=== PATIENT | male | born 1995 | race Caucasian/White ===

== ENCOUNTER 2021-11-25 03:34 | Emergency (ER) | payer OTHER, SELFPAY ==
[2021-11-25 03:46] VITALS: BP 167/77; PULSE 101; RESP 20; TEMP 36.6; O2SAT 98; BMI 40.6
[2021-11-25 03:53] LABS: Bilirubin Urine UA NEGATIVE (NEGATIVE); Glucose Urine UA NEGATIVE (Negative); Ketones Urine UA NEGATIVE (NEGATIVE); Leukocyte Esterase Urine UA TRACE (NEGATIVE); Nitrite Urine UA NEGATIVE (Negative); Occult Blood Urine UA 3+ (Negative); Protein Urine UA 1+ (Negative); Specific Gravity Urine UA 1.025 (1.000-1.035); Urobilinogen Urine UA 0.2 E.U./dL (0.2); pH Urine UA 5.5 (4.5-8.0)
[2021-11-25 03:54] LABS: Appearance Urine UA Cloudy; Color Urine UA RED
--- NOTE | 2021-11-25 03:54 | DI.CT.S_ITS ---
PROCEDURE: CT KIDNEY URETER BLADDER (KUB) INDICATIONS: flank pain, hematuria TECHNIQUE: Axial sections were acquired from the lung bases to the pubic symphysis. Coronal and sagittal reformats were performed. For radiation dose reduction, the following was used: automated exposure control, adjustment of mA and/or kV according to patient size. COMPARISON: None. FINDINGS: Image quality: Excellent. Lung bases: Lingular scarring or atelectasis. Heart: No significant findings. URINARY: There are bilateral nonobstructing renal calculi, all of which under 5 mm. There are about 4 in each kidney. Mild right hydronephrosis secondary to a 2-3 mm right distal ureter stone. Bladder: Under distended ABDOMEN: Liver: Unremarkable. Gallbladder: Unremarkable Biliary ducts: Unremarkable. Pancreas: Unremarkable. Spleen: Unremarkable. Adrenal Glands: Unremarkable. Stomach and Bowel: Small hiatal hernia. No bowel obstruction. Peritoneum: No abnormal intraperitoneal fluid. No free air. Ventral Wall: Small fat containing umbilical hernia. Abdominal Nodes: No enlarged retroperitoneal or mesenteric lymph nodes. Vessels: Aorta and inferior vena cava are normal in size. PELVIS: Pelvic Organs: Unremarkable. Pelvic Nodes: Unremarkable. Miscellaneous: No inguinal hernias are seen. Bones: No suspicious osseous lesions. IMPRESSION: 2-3 mm obstructing right distal ureter stone with mild hydronephrosis. Nonobstructing renal calyceal calculi are present, about 4 in each kidney measuring less than 5 mm. Agree with preliminary report. Dictated by: Lázaro Yoo M.D. on 11/25/2021 at 8:25 Approved by: Lázaro Yoo M.D. on 11/25/2021 at 8:31
--- NOTE | 2021-11-25 03:54 | ED.MALEGU ---
HPI - Male Genitourinary General Chief complaint: Urogenital-Male Stated complaint: Kidney stone Time Seen by Provider: 11/25/21 03:54 Source: patient Mode of arrival: Ambulatory History of Present Illness HPI Narrative: 26-year-old male nonsmoker with history of kidney stones presents with a significant other and a chief complaint of a sudden onset right-sided flank pain. He states it is very intense, sharp and stabbing and radiates around his right side and into his groin. He states it comes and goes with a mind of its own and is without any obvious provocation or palliation. He states he has been having blood in his urine as well. He has a history of kidney stones and states it feels the same. He has had nausea and vomiting. He denies any fever chills. He is otherwise well and free of complaint and denies runny nose, sore throat or cough. He is no chest pain or shortness of breath Related Data Previous Rx's Medication Instructions Recorded gabapentin 100 mg capsule 200 mg PO BEDTIME PRN myofacial 01/05/18 pain syndrome #30 caps hydrocodone 5 mg-acetaminophen 325 1 tab PO Q4-6H PRN pain #10 tabs 11/25/21 mg tablet ketorolac 10 mg tablet 10 mg PO Q6H PRN pain #14 tabs 11/25/21 ondansetron 4 mg disintegrating 4 mg PO TID-QID PRN nausea and 11/25/21 tablet vomiting #10 tabs tamsulosin 0.4 mg capsule (Flomax) 0.4 mg PO DAILY #30 caps 11/25/21 Allergies Allergy/AdvReac Type Severity Reaction Status Date / Time No Known Allergies Allergy Uncoded 08/08/17 12:51 Review of Systems Review of Systems Narrative: GENERAL: See HPI HEENT: Denies sinus pain, ear pain, sore throat, difficulty swallowing, dizziness. RESPIRATORY: Denies dyspnea, cough, wheezing, hemoptysis, sputum. CARDIOVASCULAR: Denies chest pain, palpitations, orthopnea, edema, GASTROINTESTINAL: See HPI : See HPI MUSCULOSKELETAL: denies weakness, joint pain, or bony pain SKIN: Denies rash, skin lesions, or other NEUROLOGIC: Denies weakness, headache, numbness, change in speech, confusion, seizures, incoordination. PSYCHIATRIC: No concerning psychosocial issues. 12 point review of systems is negative except for those stated above Patient History Social History Smoking Status: Former smoker Smoking Status: Former smoker alcohol intake frequency: holidays/special occasions only Substance Use Type: does not use Exam Narrative Exam Narrative: GENERAL: [26] year old patient appears stated age. Well-developed patient, in obvious pain, pacing in the room and rubbing his right flank HEAD: Atraumatic. Normocephalic. EYES: Pupils equal round and reactive. Extraocular motions intact. No scleral icterus. No injection or drainage. ENT: Nose without bleeding, purulent drainage. Throat without erythema, tonsillar hypertrophy or exudate. Airway patent. NECK: Trachea midline. Non tender CARDIOVASCULAR: Regular rate and rhythm without murmurs, gallops, or rubs. RESPIRATORY: Clear to auscultation. Breath sounds equal bilaterally. No wheezes, rales, or rhonchi. GASTROINTESTINAL: Abdomen soft, non-tender, nondistended. EXTREMITIES: No edema or joint tenderness. BACK: Nontender without deformity or crepitance. No flank tenderness. NEURO: AOx3. SKIN: No rash or erythema of visible areas Initial Vital Signs Initial Vital Signs: Vital Signs Temperature 97.8 F 11/25/21 03:46 Pulse Rate 101 H 11/25/21 03:46 Respiratory Rate 20 11/25/21 03:46 Blood Pressure 167/77 H 11/25/21 03:46 Pulse Oximetry 98 11/25/21 03:46 Oxygen Delivery Method 11/25/21 03:46 Course Orders Ordered: ED Orders 11/25/21 03:47 Urinalysis and Microscopic Stat Urine Culture Stat 11/25/21 03:54 CT kidney ureter bladder (KUB) Stat 11/25/21 04:25 Basic Metabolic Panel Stat Complete Blood Count AUTO DIFF Stat Discontinued Medications Hydrocodone Bitart/Acetaminophen (Hydrocodone/Acet 5/325 Prepack) 1 bottle MISC SEEINSTR ONE Stop: 11/25/21 04:36 Hydromorphone HCl (Hydromorphone 0.5 Mg Inj) 0.5 mg IV NOW ONE Stop: 11/25/21 05:32 Last Admin: 11/25/21 05:44 Dose: 0.5 mg Documented By: EB Sodium Chloride (Normal Saline 0.9%) 1,000 mls @ 1,000 mls/hr IV BOLUS ONE Stop: 11/25/21 04:53 Last Infusion: 11/25/21 06:09 Dose: 0 mls/hr Documented By: Admin: 11/25/21 04:22 Dose: 1,000 mls/hr Documented By: IRINA Lidocaine HCl 10.2 ml/ Sodium (Chloride) 60.2 mls @ 361.2 mls/hr IV NOW ONE Stop: 11/25/21 04:46 Last Infusion: 11/25/21 05:56 Dose: 0 mls/hr Documented By: Admin: 11/25/21 04:51 Dose: 361.2 mls/hr Documented By: IRINA Ketorolac Tromethamine (Ketorolac 30 Mg/Ml Vial) 15 mg IV NOW ONE Stop: 11/25/21 03:55 Last Admin: 11/25/21 04:22 Dose: 15 mg Documented By: IRINA Ondansetron HCl (Ondansetron 4 Mg/2 Ml Inj) 4 mg IV NOW ONE Stop: 11/25/21 03:55 Last Admin: 11/25/21 04:22 Dose: 4 mg Documented By: IRINA Tamsulosin HCl (Tamsulosin 0.4 Mg Capsule) 0.4 mg PO NOW ONE Stop: 11/25/21 04:36 Last Admin: 11/25/21 05:44 Dose: 0.4 mg Documented By: IRINA Reevaluation(s) Reevaluation #1: Patient has significant improvement symptoms after above-stated therapies. Vital Signs Vital signs: Vital Signs - 8 hr 11/25/21 03:46 Temperature 97.8 F Pulse Rate 101 H Respiratory Rate 20 Blood Pressure 167/77 H Pulse Oximetry 98 Oxygen Delivery Method Room Air MDM - Male Genitourinary Lab Data Result diagrams: 11/25/21 04:25 11/25/21 04:25 Labs: Lab Results 11/25/21 11/25/21 11/25/21 Range/Units 03:47 04:25 04:25 WBC 13.8 H (4.5-11.0) X10^3/uL RBC 5.05 (4.5-5.9) X10^6/uL Hgb 14.4 (13.5-17.5) g/dL Hct 42.0 (41-53) % MCV 83.2 (80-100) fL MCH 28.6 (26-34) PG MCHC 34.4 (30-36) % RDW 12.9 (11.6-14.8) % Plt Count 303 (150-400) X10^3/uL Neut % (Auto) 62.4 (50-75) % Lymph % (Auto) 26.9 (25-40) % [place] % (Auto) 7.9 (3-14) % Eos % (Auto) 2.1 (2-4) % Baso % (Auto) 0.7 (0-2) % Neut # (Auto) 8600 H (0245-6806) /uL Lymph # (Auto) 3700 (7744-7352) /uL [place] # (Auto) 1100 H (0-900) /uL Eos # (Auto) 300 (0-450) /uL Baso # (Auto) 100 (0-100) /uL Sodium 141 (137-145) mmol/L Potassium 3.7 (3.4-5.1) mmol/L Chloride 105 (98-107) mmol/L Carbon Dioxide 24 (22-32) mmol/L BUN 15 (9-20) mg/dL Creatinine 0.95 (0.66-1.25) mg/dL Estimated GFR > 60 (>60) mL/min BUN/Creatinine Ratio 15.8 (6-22) Glucose 117 H (70-100) mg/dL Calcium 8.7 (8.4-10.2) mg/dL Urine Color Red Urine Appearance Cloudy Urine pH 5.5 (4.5-8.0) Ur Specific [place] 1.025 (1.000-1.035) Urine Protein 1+ H (Negative) Urine Glucose (UA) Negative (Negative) g/dL Urine Ketones Negative (NEGATIVE) Urine Occult Blood 3+ H (Negative) Urine Nitrate Negative (Negative) Urine Bilirubin Negative (NEGATIVE) Urine Urobilinogen 0.2 (0.2) E.U./dL Ur Leukocyte Esterase Trace H (NEGATIVE) Urine RBC >100/hpf H (0-5/HPF) Urine WBC 0-1/hpf (0-5/HPF) Urine Bacteria None seen (None) Ur Culture Indicated? Specimen cultured Imaging Data CT scan - abdomen/pelvis: My Impression: 3 mm obstructing stone in the right mid to distal ureter with associated [id number] hydro MDM Narrative Medical decision making narrative: Patient with classic history for kidney stone, urine shows blood but no sign of infection, no evidence of renal involvement on lab work and a 3 mm stone noted on imaging. His symptoms are greatly improved after above-stated therapies. His pain is well controlled, he is tolerating liquids and shows no sign of sepsis. Return precautions given and questions answered to his apparent satisfaction Discharge Plan Departure Patient Disposition: Home Clinical Impression: Kidney stone on right side Instructions: DI for Kidney Stones Activity Restrictions/Additional Instructions: *You have been diagnosed with [right-sided kidney stone measuring 3 mm with evidence of mild obstruction of the urinary tract causing swelling of your kidney. There is no evidence of infection or kidney failure.] *What to do: *Please continue to take your regular medications as directed. [x ] New medication prescriptions sent to your pharmacy: [[facility] ] [ ] New medication written as a paper prescription [ ] No new medications given *Please follow up with your primary care provider in 2-3 days, call for an appointment. Let them know you were seen in the Emergency Department and that we ask that you be seen in follow up. We will electronically transmit a record of today's note if your PCP is in our system *If you do not have a primary care provider please contact the [facility] Resource line at [phone]. They will ask some questions about your medical history and help get you set up with a doctor in the community. * as we discussed, it would be reasonable (though not required) to follow-up with local urology. Please contact Dr. Bell at his office number listed below and let them know that you were seen in the emergency department and we would like you seen in follow-up *Return to Emergency Department if you should have any new, worsening or concerning symptoms, such as [fever greater than 101 F, shaking chills, worsening pain, persistent vomiting or other bothersome symptoms] You have been prescribed a short course of narcotic medications. These are potentially dangerous and addictive medications that should be used carefully. While on these medications you cannot drive or operate heavy machinery. Additionally, you cannot sign legal documents or perform any duties such as this. 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 Please understand that we cannot provide further refills of narcotics or controlled substances through the ED and your pain management will need to be through your Primary Care Provider Prescriptions: New hydrocodone-acetaminophen 5-325 mg tablet 1 tab PO Q4-6H PRN (Reason: pain) Qty: 10 0RF ketorolac 10 mg tablet 10 mg PO Q6H PRN (Reason: pain) Qty: 14 0RF tamsulosin [Flomax] 0.4 mg capsule 0.4 mg PO DAILY Qty: 30 0RF ondansetron 4 mg tablet,disintegrating 4 mg PO TID-QID PRN (Reason: nausea and vomiting) Qty: 10 0RF No Action gabapentin 100 mg capsule 200 mg PO BEDTIME PRN (Reason: myofacial pain syndrome) Qty: 30 0RF Referrals: Miscellaneous,DoctorMD [Primary Care Provider] - Vinod Bell MD [Physician] -
[2021-11-25 04:01] LABS: Bacteria Urine None Seen; Culture Indicated Urine Specimen Cultured; RBC Urine >100/HPF (0-5/HPF); WBC Urine 0-1/HPF (0-5/HPF)
[2021-11-25] MEDS: KETOROLAC 30 MG/ML VIAL 15 MG IV (04:22)
[2021-11-25] MEDS: ONDANSETRON 4 MG/2 ML INJ IV (04:22)
[2021-11-25] MEDS: SODIUM CHLORIDE 0.9% 1,000 ML 1000 ML IV (04:22)
[2021-11-25 04:37] LABS: Add Manual Diff / Slide Review NO; Basophils Absolute Auto 100 /uL (0-100); Basophils Percent Auto 0.7 % (0-2); Eosinophils Absolute Auto 300 /uL (0-450); Eosinophils Percent Auto 2.1 % (2-4); Hemoglobin 14.4 g/dL (13.5-17.5); Lymphocytes Absolute Auto 3700 /uL (1100-4500); Lymphocytes Percent Auto 26.9 % (25-40); Mean Corpuscular HGB Conc 34.4 % (30-36); Mean Corpuscular Hemoglobin 28.6 PG (26-34); Mean Corpuscular Volume 83.2 fL (80-100); Monocytes Absolute Auto 1100 /uL (0-900); Monocytes Percent Auto 7.9 % (3-14); Neutrophils Absolute Auto 8600 /uL (1500-7000); Neutrophils Percent Auto 62.4 % (50-75); Platelet Count 303 X10^3/uL (150-400); Red Blood Cell Count 5.05 X10^6/uL (4.5-5.9); Red Cell Distribution Width 12.9 % (11.6-14.8); White Blood Cell Count 13.8 X10^3/uL (4.5-11.0)
[2021-11-25 04:42] LABS: BUN Creatinine Ratio 15.8 (6-22); Blood Urea Nitrogen 15 mg/dL (9-20); Calcium 8.7 mg/dL (8.4-10.2); Carbon Dioxide 24 mmol/L (22-32); Chloride 105 mmol/L (98-107); Estimated Glomerular Filt Rate > 60 mL/min (>60); Glucose 117 mg/dL (70-100); HEMOLYSIS < 15 (0-50); Potassium 3.7 mmol/L (3.4-5.1); Sodium 141 mmol/L (137-145)
[2021-11-25] MEDS: LIDOCAINE 2% IV (04:51)
[2021-11-25] MEDS: SODIUM CHLORIDE 0.9% IV (04:51)
[2021-11-25] MEDS: TAMSULOSIN 0.4 MG CAPSULE PO (05:44)
[2021-11-25] MEDS: HYDROMORPHONE 0.5 MG INJ IV (05:44)
[2021-11-25] MEDS: HYDROCODONE/ACET 5/325 PREPACK 1 BOTTLE MISC (06:19)
== END 2021-11-25 06:21 | disposition home or self-care (01) ==
PROVIDERS: Emergency Provider Emergency Medicine
DX: N20.0 Calculus of kidney (principal)
CPT/HCPCS: 74176; 80048; 81001; 85025; 87086; 96365; 96375; 99283; 99284; J1170; J1885; J2405

== ENCOUNTER 2021-11-29 01:17 | Emergency (ER) | payer OTHER, SELFPAY ==
--- NOTE | 2021-11-29 03:03 | ED_ITS ---
HPI - Male Genitourinary General Chief complaint: Urogenital-Male Stated complaint: PASSED A KIDNEY STONE Time Seen by Provider: 11/29/21 02:40 History of Present Illness HPI Narrative: 26-year-old male with known kidney stones and recent diagnosis of a 3 mm right- sided stone returns for evaluation of ongoing pain. He had been seen and evaluated by myself a few days ago had classic history and physical with the CT demonstrating a right mid ureteral stone with associated hydro. He had a slight elevation in white blood cell count but no evidence of infection on urine. Pain has been well controlled and he was discharged in typical fashion. He states that earlier today he passed what appeared to be a small stone but has ongoing pain nonetheless. He does, however state the pain is much less intense as it was when he was here few days ago Related Data Previous Rx's Medication Instructions Recorded gabapentin 100 mg capsule 200 mg PO BEDTIME PRN myofacial 01/05/18 pain syndrome #30 caps hydrocodone 5 mg-acetaminophen 325 1 tab PO Q4-6H PRN pain #10 tabs 11/25/21 mg tablet ketorolac 10 mg tablet 10 mg PO Q6H PRN pain #14 tabs 11/25/21 ondansetron 4 mg disintegrating 4 mg PO TID-QID PRN nausea and 11/25/21 tablet vomiting #10 tabs tamsulosin 0.4 mg capsule (Flomax) 0.4 mg PO DAILY #30 caps 11/25/21 hydrocodone 5 mg-acetaminophen 325 1 tab PO Q4-6H PRN pain #10 tabs 11/29/21 mg tablet ketorolac 10 mg tablet 10 mg PO Q6H PRN pain #14 tabs 11/29/21 ondansetron 4 mg disintegrating 4 mg PO TID-QID PRN nausea and 11/29/21 tablet vomiting #10 tabs Allergies Allergy/AdvReac Type Severity Reaction Status Date / Time No Known Allergies Allergy Uncoded 08/08/17 12:51 Review of Systems Review of Systems Narrative: GENERAL: Denies chills, fatigue, malaise, fever, sweats. HEENT: Denies sinus pain, ear pain, sore throat, difficulty swallowing, dizzi ness. RESPIRATORY: Denies dyspnea, cough, wheezing, hemoptysis, sputum. CARDIOVASCULAR: Denies chest pain, palpitations, orthopnea, edema, GASTROINTESTINAL: Denies nausea, vomiting, abdominal pain, diarrhea, constipation, melena. : See HPI MUSCULOSKELETAL: denies weakness, joint pain, or bony pain SKIN: Denies rash, skin lesions, or other NEUROLOGIC: Denies weakness, headache, numbness, change in speech, confusion, seizures, incoordination. PSYCHIATRIC: No concerning psychosocial issues. 12 point review of systems is negative except for those stated above Patient History Social History Smoking Status: Former smoker Smoking Status: Former smoker alcohol intake frequency: holidays/special occasions only Substance Use Type: does not use Exam Narrative Exam Narrative: GENERAL: [26] year old patient appears stated age. Well-developed patient, in mild distress. HEAD: Atraumatic. Normocephalic. EYES: Pupils equal round and reactive. Extraocular motions intact. No scleral icterus. No injection or drainage. ENT: Nose without bleeding, purulent drainage. Throat without erythema, tonsillar hypertrophy or exudate. Airway patent. NECK: Trachea midline. Non tender CARDIOVASCULAR: Regular rate and rhythm without murmurs, gallops, or rubs. RESPIRATORY: Clear to auscultation. Breath sounds equal bilaterally. No wheezes, rales, or rhonchi. GASTROINTESTINAL: Abdomen soft, non-tender, nondistended. EXTREMITIES: No edema or joint tenderness. BACK: Nontender without deformity or crepitance. No flank tenderness. NEURO: AOx3. SKIN: No rash or erythema of visible areas Initial Vital Signs Initial Vital Signs: Vital Signs Temperature 97.7 F 11/29/21 03:04 Pulse Rate 85 11/29/21 03:04 Respiratory Rate 18 11/29/21 03:04 Blood Pressure 159/99 H 11/29/21 03:04 Pulse Oximetry 97 11/29/21 03:04 Oxygen Delivery Method 11/29/21 03:04 Course Orders Ordered: ED Orders 11/29/21 04:45 BMP [Basic Metabolic Panel] Stat CBC Auto Diff [Complete Blood Count AUTO DIFF] Stat 11/29/21 05:07 US renal complete Stat 11/29/21 05:14 Urine Microscopic Stat Discontinued Medications Hydromorphone HCl (Hydromorphone 0.5 Mg Inj) 0.5 mg IV NOW ONE Stop: 11/29/21 05:12 Last Admin: 11/29/21 05:17 Dose: 0.5 mg Documented By: DAVSI Sodium Chloride (Normal Saline 0.9%) 1,000 mls @ 1,000 mls/hr IV BOLUS ONE Stop: 11/29/21 05:25 Last Admin: 11/29/21 04:51 Dose: 1,000 mls/hr Documented By: DAVIS Ketorolac Tromethamine (Ketorolac 30 Mg/Ml Vial) 15 mg IV NOW ONE Stop: 11/29/21 04:27 Last Admin: 11/29/21 04:51 Dose: 15 mg Documented By: DAVIS Reevaluation(s) Reevaluation #1: Minimal improvement after Toradol Reevaluation #2: Some more improvement after Dilaudid, requesting more Vital Signs Vital signs: Vital Signs - 8 hr 11/29/21 03:04 Temperature 97.7 F Pulse Rate 85 Respiratory Rate 18 Blood Pressure 159/99 H Pulse Oximetry 97 Oxygen Delivery Method Room Air MDM - Male Genitourinary Lab Data Result diagrams: 11/29/21 04:45 11/29/21 04:45 Labs: Lab Results 11/29/21 11/29/21 Range/Units 04:45 04:45 WBC 12.5 H (4.5-11.0) X10^3/uL RBC 4.78 (4.5-5.9) X10^6/uL Hgb 13.7 (13.5-17.5) g/dL Hct 39.9 L (41-53) % MCV 83.5 (80-100) fL MCH 28.7 (26-34) PG MCHC 34.4 (30-36) % RDW 12.9 (11.6-14.8) % Plt Count 313 (150-400) X10^3/uL Neut % (Auto) 69.1 (50-75) % Lymph % (Auto) 21.5 L (25-40) % [place] % (Auto) 7.1 (3-14) % Eos % (Auto) 1.7 L (2-4) % Baso % (Auto) 0.6 (0-2) % Neut # (Auto) 8700 H (7149-1753) /uL Lymph # (Auto) 2700 (0388-6551) /uL [place] # (Auto) 900 (0-900) /uL Eos # (Auto) 200 (0-450) /uL Baso # (Auto) 100 (0-100) /uL Sodium 140 (137-145) mmol/L Potassium 4.1 (3.4-5.1) mmol/L Chloride 106 (98-107) mmol/L Carbon Dioxide 22 (22-32) mmol/L BUN 23 H (9-20) mg/dL Creatinine 1.10 (0.66-1.25) mg/dL Estimated GFR > 60 (>60) mL/min BUN/Creatinine Ratio 20.9 (6-22) Glucose 107 H (70-100) mg/dL Calcium 8.9 (8.4-10.2) mg/dL Urine Dip Bedside Urine Glucose Negative Bedside Urine Bilirubin - Negative Bedside Urine Ketone - Negative Urine Specific [place] 1.025 Bedside Urine Occult Blood +++ Bedside Urine pH 5.5 Bedside Urine Protein - Negative Bedside Urine Urobilinogen - Negative Bedside Urine Nitrite - Negative Bedside Urine Leukocytes +/- 15 Esterase Discharge Plan Departure Patient Disposition: Home Clinical Impression: Kidney stone on right side Instructions: DI for Kidney Stones Activity Restrictions/Additional Instructions: *You have been diagnosed with [right-sided kidney stone] *What to do: *Please continue to take your regular medications as directed. [x ] New medication prescriptions sent to your pharmacy: [[facility] ] [ ] New medication written as a paper prescription [ ] No new medications given *Please follow up with your primary care provider in 2-3 days, call for an appointment. Let them know you were seen in the Emergency Department and that we ask that you be seen in follow up. We will electronically transmit a record of today's note if your PCP is in our system *If you do not have a primary care provider please contact the [facility] Resource line at [phone]. They will ask some questions about your medical history and help get you set up with a doctor in the community. *Return to Emergency Department if you should have any new, worsening or concerning symptoms, such as [fever greater than 101 F, shaking chills, worsening pain, persistent vomiting or other bothersome symptoms] Prescriptions: New hydrocodone-acetaminophen 5-325 mg tablet 1 tab PO Q4-6H PRN (Reason: pain) Qty: 10 0RF ketorolac 10 mg tablet 10 mg PO Q6H PRN (Reason: pain) Qty: 14 0RF ondansetron 4 mg tablet,disintegrating 4 mg PO TID-QID PRN (Reason: nausea and vomiting) Qty: 10 0RF No Action gabapentin 100 mg capsule 200 mg PO BEDTIME PRN (Reason: myofacial pain syndrome) Qty: 30 0RF hydrocodone-acetaminophen 5-325 mg tablet 1 tab PO Q4-6H PRN (Reason: pain) Qty: 10 0RF ketorolac 10 mg tablet 10 mg PO Q6H PRN (Reason: pain) Qty: 14 0RF tamsulosin [Flomax] 0.4 mg capsule 0.4 mg PO DAILY Qty: 30 0RF ondansetron 4 mg tablet,disintegrating 4 mg PO TID-QID PRN (Reason: nausea and vomiting) Qty: 10 0RF Referrals: Giovany Pop MD [Primary Care Provider] -
[2021-11-29 03:04] VITALS: BP 159/99; PULSE 85; RESP 18; TEMP 36.5; O2SAT 97
[2021-11-29] MEDS: KETOROLAC 30 MG/ML VIAL 15 MG IV (04:51)
[2021-11-29] MEDS: SODIUM CHLORIDE 0.9% 1,000 ML 1000 ML IV (04:51)
--- NOTE | 2021-11-29 05:07 | DI.US.S_ITS ---
PROCEDURE: US RENAL COMPLETE INDICATIONS: worsening flank pain, recent stone TECHNIQUE: Real-time scanning was performed of the kidneys and bladder, with image documentation. COMPARISON: [facility], CT, CT KIDNEY URETER BLADDER (KUB), 11/25/2021, 4:02. [facility], CT, CT ABDOMEN PELVIS WITH CONTRAST, 03/28/2019, 20:26. [facility], ABDOMEN ACUTE SERIES, 06/23/2017, 7:54. FINDINGS: Kidneys: Kidneys are normal in size. Right kidney measures 12.0 cm long; left kidney measures 11.9 cm long. Right renal cortical thickness is 2.0 cm; left renal cortical thickness is 2.0 cm. Renal cortical echotexture is normal. No hydronephrosis. 1.1 centimeter nonobstructing stone noted in the upper pole of the left kidney. No suspicious solid mass lesions. Bladder: Urinary bladder completely decompressed at the time of imaging and cannot be evaluated. Miscellaneous: No free pelvic fluid. IMPRESSION: 1. No hydronephrosis. 2. 1 centimeter nonobstructing left renal stone. Dictated by: Jennifer Bernabe MD, PhD on 11/29/2021 at 8:57 Approved by: Jennifer Bernabe MD, PhD on 11/29/2021 at 8:59
[2021-11-29] MEDS: HYDROMORPHONE 0.5 MG INJ IV (05:17)
[2021-11-29 05:19] LABS: Add Manual Diff / Slide Review NO; Basophils Absolute Auto 100 /uL (0-100); Basophils Percent Auto 0.6 % (0-2); Eosinophils Absolute Auto 200 /uL (0-450); Eosinophils Percent Auto 1.7 % (2-4); Hematocrit 39.9 % (41-53); Hemoglobin 13.7 g/dL (13.5-17.5); Lymphocytes Absolute Auto 2700 /uL (1100-4500); Lymphocytes Percent Auto 21.5 % (25-40); Mean Corpuscular HGB Conc 34.4 % (30-36); Mean Corpuscular Hemoglobin 28.7 PG (26-34); Mean Corpuscular Volume 83.5 fL (80-100); Monocytes Absolute Auto 900 /uL (0-900); Monocytes Percent Auto 7.1 % (3-14); Neutrophils Absolute Auto 8700 /uL (1500-7000); Neutrophils Percent Auto 69.1 % (50-75); Platelet Count 313 X10^3/uL (150-400); Red Blood Cell Count 4.78 X10^6/uL (4.5-5.9); Red Cell Distribution Width 12.9 % (11.6-14.8); White Blood Cell Count 12.5 X10^3/uL (4.5-11.0)
[2021-11-29 05:24] LABS: BUN Creatinine Ratio 20.9 (6-22); Blood Urea Nitrogen 23 mg/dL (9-20); Calcium 8.9 mg/dL (8.4-10.2); Carbon Dioxide 22 mmol/L (22-32); Chloride 106 mmol/L (98-107); Estimated Glomerular Filt Rate > 60 mL/min (>60); Glucose 107 mg/dL (70-100); HEMOLYSIS < 15 (0-50); Potassium 4.1 mmol/L (3.4-5.1); Sodium 140 mmol/L (137-145)
[2021-11-29 06:35] LABS: Bacteria Urine Few (2-10); RBC Urine 10-30/HPF (0-5/HPF); WBC Urine 1-5/HPF (0-5/HPF)
[2021-11-29 06:36] LABS: Culture Indicated Urine Specimen Cultured
[2021-11-29] MEDS: HYDROCODONE/ACET 5/325 PREPACK 1 BOTTLE MISC (06:52)
== END 2021-11-29 07:03 | disposition home or self-care (01) ==
PROVIDERS: Emergency Provider Emergency Medicine; PCP Urology
DX: N20.0 Calculus of kidney (principal)
CPT/HCPCS: 76770; 80048; 81003; 81015; 85025; 87086; 96361; 96374; 96375; 99283; 99284; J1170; J1885

== ENCOUNTER → 2022-06-21 07:47 | Outpatient (CLI) | payer OTHER, SELFPAY ==
[2022-06-21 08:37] LABS: COVID-19 CEPHEID 4-PLEX PCR Negative (Negative); Influenza A - CEPHEID Flu A NEGATIVE (NEGATIVE); Influenza B - CEPHEID Flu B NEGATIVE (NEGATIVE); Respiratory Syncytial Virus Negative (Negative)
== END ==
PROVIDERS: PCP Urology; Visit Provider Registered Nurse
DX: R50.9 Fever, unspecified (principal)
CPT/HCPCS: 0241U

== ENCOUNTER 2023-07-01 21:28 | Emergency (ER) | payer OTHER, SELFPAY ==
[2023-07-01 21:30] VITALS: PULSE 78; RESP 26; TEMP 36.4; O2SAT 95; BMI 36.6
[2023-07-01] MEDS: KETOROLAC 30 MG/ML VIAL IV (21:45)
[2023-07-01] MEDS: ACETAMINOPHEN IV 1,000 MG/100 ML VIAL 400 MG IV (21:45)
--- NOTE | 2023-07-01 21:48 | ED.BACK ---
HPI - Back Pain/Injury General Chief Complaint: Back Pain/Injury Stated Complaint: states kidney pain Time Seen by Provider: 07/01/23 21:35 Source: patient Mode of arrival: Ambulatory History of Present Illness HPI Narrative: 28-year-old male who is here for evaluation approximately 1 hour of a sudden onset of left-sided flank discomfort. He states he has had multiple kidney stones in the past and this feels very similar to his prior stones. No fevers. No skin rashes. Has not tried anything for symptoms prior to arrival. It was sudden onset. Has been persistent since then. He is having some nausea. Related Data Previous Rx's Medication Instructions Recorded hydrocodone 5 mg-acetaminophen 325 1 tab PO Q6H PRN pain #20 tabs 07/01/23 mg tablet ondansetron 4 mg disintegrating 4 mg PO Q6H PRN nausea and 07/01/23 tablet vomiting #20 tabs Allergies Allergy/AdvReac Type Severity Reaction Status Date / Time No Known Allergies Allergy Uncoded 07/06/22 11:47 Review of Systems Respiratory Respiratory: Reports system reviewed and no additional complaints, except as documented Gastrointestinal Gastrointestinal: Reports system reviewed and no additional complaints, except as documented Genitourinary Genitourinary: Reports system reviewed and no additional complaints, except as documented Integumentary/Breasts Skin/Breast: Reports system reviewed and no additional complaints, except as documented Neurologic Neurologic: Reports system reviewed and no additional complaints, except as documented Patient History Social History Smoking Status: Current every day smoker Smoking Status: Current every day smoker tobacco type: cigarettes and vaping alcohol intake frequency: holidays/special occasions only Substance Use Type: does not use Exam Initial Vital Signs Initial Vital Signs: Vital Signs Temperature 97.6 F 07/01/23 21:30 Pulse Rate 78 07/01/23 21:30 Respiratory Rate 26 H 07/01/23 21:30 Pulse Oximetry 95 07/01/23 21:30 Oxygen Delivery Method Room Air 07/01/23 21:30 Const General: cooperative, comfortable and No ill appearing HENMT Head: normal to inspection Resp Effort & Inspection: normal respiratory effort Cardio Rate: regular rate GI Inspection: normal to inspection and non-distended Back/Spine/Pelvis Back: No CVA tenderness Skin General: no rashes or lesions noted Course Orders Ordered: ED Orders 07/01/23 21:40 Basic Metabolic Panel Stat Complete Blood Count AUTO DIFF Stat 07/01/23 21:47 Urine Microscopic Stat Discontinued Medications Hydrocodone Bitart/Acetaminophen (Hydrocodone/Acet 5/325 Prepack) 1 bottle MISC DIRECTED ONE Stop: 07/01/23 23:03 Last Admin: 07/01/23 23:13 Dose: 1 bottle Documented By: MARCELA Hydromorphone HCl (Hydromorphone 1 Mg Inj) 1 mg IV NOW ONE Stop: 07/01/23 22:06 Last Admin: 07/01/23 22:13 Dose: 1 mg Documented By: Hydromorphone HCl (Hydromorphone 1 Mg Inj) 1 mg IV NOW ONE Stop: 07/01/23 22:59 Last Admin: 07/01/23 23:05 Dose: 1 mg Documented By: MARCELA Acetaminophen (Ofirmev) 1,000 mg in 100 mls @ 400 mls/hr IV NOW ONE Stop: 07/01/23 21:50 Last Infusion: 07/01/23 22:06 Dose: Infused Documented By: Admin: 07/01/23 21:45 Dose: 400 mls/hr Documented By: MARCELA Ketorolac Tromethamine (Ketorolac 30 Mg/Ml Vial) 30 mg IV NOW ONE Stop: 07/01/23 21:37 Last Admin: 07/01/23 21:45 Dose: 30 mg Documented By: MARCELA Ondansetron HCl (Ondansetron 4 Mg/2 Ml Inj) 4 mg IV NOW ONE Stop: 07/01/23 22:07 Last Admin: 07/01/23 22:13 Dose: Not Given Documented By: Ondansetron HCl (Ondansetron 4 Mg Odt Prepack) 1 bottle MISC DIRECTED ONE Stop: 07/01/23 23:03 Last Admin: 07/01/23 23:14 Dose: 1 bottle Documented By: MARCELA Vital Signs Vital signs: Vital Signs - 8 hr 07/01/23 21:30 07/01/23 23:41 Temperature 97.6 F Pulse Rate 78 83 Respiratory Rate 26 H 18 Blood Pressure 133/87 Pulse Oximetry 95 98 Oxygen Delivery Method Room Air Room Air MDM - Back Pain/Injury Lab Data Attestation: I reviewed the patient's lab results. 07/01/23 21:40 07/01/23 21:40 Labs: Lab Results 07/01/23 07/01/23 Range/Units 21:40 21:47 WBC 9.8 (4.5-11.0) X10^3/uL RBC 5.56 (4.5-5.9) X10^6/uL Hgb 15.9 (13.5-17.5) g/dL Hct 46.3 (41-53) % MCV 83.3 (80-100) fL MCH 28.5 (26-34) PG MCHC 34.3 (30-36) % RDW 13.3 (11.6-14.8) % Plt Count 387 (150-400) X10^3/uL Neut % (Auto) 57.8 (50-75) % Lymph % (Auto) 32.5 (25-40) % [place] % (Auto) 8.0 (3-14) % Eos % (Auto) 1.2 L (2-4) % Baso % (Auto) 0.5 (0-2) % Neut # (Auto) 5600 (1733-6228) /uL Lymph # (Auto) 3200 (3604-4773) /uL [place] # (Auto) 800 (0-900) /uL Eos # (Auto) 100 (0-450) /uL Baso # (Auto) 100 (0-100) /uL Sodium 142 (137-145) mmol/L Potassium 4.3 (3.4-5.1) mmol/L Chloride 111 H (98-107) mmol/L Carbon Dioxide 23 (22-32) mmol/L BUN 15 (9-20) mg/dL Creatinine 0.80 (0.66-1.25) mg/dL Estimated GFR > 60 (>60) mL/min BUN/Creatinine Ratio 18.8 (6-22) Glucose 120 H (70-100) mg/dL Calcium 9.7 (8.4-10.2) mg/dL Urine RBC 10-30/hpf H (0-5/HPF) Urine WBC 0-1/hpf (0-5/HPF) Ur Squamous Epith Cells 0-1 /hpf (0-5/HPF) Calcium Oxalate Crystal Moderate H Urine Bacteria Occasional (0-1) (None) Urine Mucus 1+ H (Negative) Ur Culture Indicated? Cult not indicated Vol Urine Centrifuged Low vol <10ml unspun A Urine Dip Bedside Urine Glucose Negative Bedside Urine Bilirubin - Negative Bedside Urine Ketone - Negative Urine Specific [place] 1.03 Bedside Urine Occult Blood +++ Bedside Urine pH 6 Bedside Urine Protein +/- 15 Bedside Urine Urobilinogen - Negative Bedside Urine Nitrite - Negative Bedside Urine Leukocytes - Negative Esterase MDM Narrative Medical decision making narrative: Patient has a history of stones. He states this feels very similar. Creatinine is unremarkable. Urinalysis has blood but no other signs of infection. No skin changes. Given his history we will hold on a CT scan for now. Pain relatively well controlled with the medications here in the ER. Patient understands the risks and benefits of obtaining a CT scan in his okay with holding on this for now. Will send home with symptom control. He was given return precautions. He expressed understanding and agreement Discharge Plan Departure Patient Disposition: Home Clinical Impression: Renal colic on left side Instructions: Kidney Stones -- Adult Activity Restrictions/Additional Instructions: Use the pain and nausea medication as directed. Be sure that you were increasing your fluid intake. If you start to have symptoms that are not control the medications or vomiting that has not controlled or fevers please return to the emergency department for further evaluation. Prescriptions: New ondansetron 4 mg tablet,disintegrating 4 mg PO Q6H PRN (Reason: nausea and vomiting) Qty: 20 0RF hydrocodone-acetaminophen 5-325 mg tablet 1 tab PO Q6H PRN (Reason: pain) Qty: 20 0RF Referrals: Giovany Pop MD [Primary Care Provider] - Stand Alone Forms: Patient Portal/API, Work Release Note
[2023-07-01 21:53] LABS: Add Manual Diff / Slide Review NO; Basophils Absolute Auto 100 /uL (0-100); Basophils Percent Auto 0.5 % (0-2); Eosinophils Absolute Auto 100 /uL (0-450); Eosinophils Percent Auto 1.2 % (2-4); Hematocrit 46.3 % (41-53); Hemoglobin 15.9 g/dL (13.5-17.5); Lymphocytes Absolute Auto 3200 /uL (1100-4500); Lymphocytes Percent Auto 32.5 % (25-40); Mean Corpuscular HGB Conc 34.3 % (30-36); Mean Corpuscular Hemoglobin 28.5 PG (26-34); Mean Corpuscular Volume 83.3 fL (80-100); Monocytes Absolute Auto 800 /uL (0-900); Neutrophils Absolute Auto 5600 /uL (1500-7000); Neutrophils Percent Auto 57.8 % (50-75); Platelet Count 387 X10^3/uL (150-400); Red Blood Cell Count 5.56 X10^6/uL (4.5-5.9); Red Cell Distribution Width 13.3 % (11.6-14.8); White Blood Cell Count 9.8 X10^3/uL (4.5-11.0)
--- NOTE | 2023-07-01 21:56 | PC.NURSE ---
Pt states that pain started 20 minutes prior to arrival to ER. Pain is so bad that is it causing dry heaves, no vomiting as of now. Denies issues with urination, normal BMs
[2023-07-01 22:04] LABS: BUN Creatinine Ratio 18.8 (6-22); Blood Urea Nitrogen 15 mg/dL (9-20); Calcium 9.7 mg/dL (8.4-10.2); Carbon Dioxide 23 mmol/L (22-32); Chloride 111 mmol/L (98-107); Estimated Glomerular Filt Rate > 60 mL/min (>60); Glucose 120 mg/dL (70-100); HEMOLYSIS 15 (0-50); Potassium 4.3 mmol/L (3.4-5.1); Sodium 142 mmol/L (137-145)
[2023-07-01 22:06] LABS: Bacteria Urine Occasional (0-1); Calcium Oxalate Crystals Urine Moderate; Mucus Urine 1+ (Negative); RBC Urine 10-30/HPF (0-5/HPF); Squamous Epithelial Cell Urine 0-1 /HPF (0-5/HPF); Urine Volume Low Vol <10mL unspun; WBC Urine 0-1/HPF (0-5/HPF)
[2023-07-01 22:07] LABS: Culture Indicated Urine Cult Not Indicated
[2023-07-01] MEDS: ONDANSETRON 4 MG/2 ML INJ (22:12)
[2023-07-01] MEDS: HYDROMORPHONE 1 MG INJ IV ×2 (22:13→23:05)
[2023-07-01] MEDS: HYDROCODONE/ACET 5/325 PREPACK 1 BOTTLE MISC (23:13)
[2023-07-01] MEDS: ONDANSETRON 4 MG ODT PREPACK 1 BOTTLE MISC (23:14)
[2023-07-01 23:41] VITALS: BP 133/87; PULSE 83; RESP 18; O2SAT 98
== END 2023-07-01 23:44 | disposition home or self-care (01) ==
PROVIDERS: Emergency Provider Emergency Medicine; PCP Urology
DX: N20.0 Calculus of kidney (principal)
CPT/HCPCS: 36415; 80048; 81003; 81015; 85025; 96365; 96375; 96376; 99284; J0136; J1170; J1885; J2405

== ENCOUNTER 2023-12-04 21:47 | Emergency (ER) | payer OTHER, SELFPAY ==
[2023-12-04 22:02] VITALS: BP 189/90; PULSE 113; RESP 20; TEMP 36.6; O2SAT 100; BMI 28.6
--- NOTE | 2023-12-04 22:11 | ED.MALEGU ---
HPI - Male Genitourinary General Chief complaint: Urogenital-Male Stated complaint: states passing a kidney stone Time Seen by Provider: 12/04/23 21:52 Source: patient Mode of arrival: Ambulatory History of Present Illness HPI Narrative: 28-year-old male with a reported history of kidney stones presents for kidney stone pain. States that he was trying to handle the pain at home but could not and came to the ER. Has had intermittent stones for the last several years, states that he was never followed up with Urology. Related Data Previous Rx's Medication Instructions Recorded hydrocodone 5 mg-acetaminophen 325 1 tab PO Q6H PRN pain #20 tabs 07/01/23 mg tablet ondansetron 4 mg disintegrating 4 mg PO Q6H PRN nausea and 07/01/23 tablet vomiting #20 tabs ondansetron 4 mg disintegrating 4 mg PO Q8H PRN nausea and 12/04/23 tablet vomiting #30 tabs oxycodone-acetaminophen 5 mg-325 1 tab PO TID PRN pain #14 tabs 12/04/23 mg tablet tamsulosin 0.4 mg capsule (Flomax) 0.4 mg PO DAILY #30 caps 12/04/23 Allergies Allergy/AdvReac Type Severity Reaction Status Date / Time No Known Allergies Allergy Uncoded 07/06/22 11:47 Patient History Social History Smoking Status: Current every day smoker Smoking Status: Current every day smoker tobacco type: cigarettes and vaping alcohol intake frequency: holidays/special occasions only Substance Use Type: does not use Exam Initial Vital Signs Initial Vital Signs: Vital Signs Temperature 97.9 F 12/04/23 22:02 Pulse Rate 113 H 12/04/23 22:02 Respiratory Rate 20 12/04/23 22:02 Blood Pressure 189/90 H 12/04/23 22:02 Pulse Oximetry 100 12/04/23 22:02 Oxygen Delivery Method Room Air 12/04/23 22:02 Const: Awake, alert, uncomfortable, holding his left flank Cardiac: Tachycardia, regular rhythm RESP: unlabored, clear bilaterally, no wheezing Skin: Warm, Dry, intact, no rashes Neuro: AO x3, CN II-XII grossly intact, moves all extremities Course Orders Ordered: ED Orders 12/04/23 21:55 Urine Microscopic Stat 12/04/23 22:12 CT abdomen pelvis wo con Stat 12/04/23 22:15 CBC Auto Diff [Complete Blood Count AUTO DIFF] Stat CMP [Comprehensive Metabolic Panel] Stat Discontinued Medications Hydrocodone Bitart/Acetaminophen (Hydrocodone/Acet 5/325 Prepack) 1 bottle MISC DIRECTED ONE Stop: 12/04/23 23:44 Last Admin: 12/05/23 00:18 Dose: 1 bottle Documented By: VASYL Hydromorphone HCl (Hydromorphone 0.5 Mg Inj) 0.5 mg IV NOW ONE Stop: 12/04/23 22:48 Last Admin: 12/04/23 22:59 Dose: 0.5 mg Documented By: LATISHA Hydromorphone HCl (Hydromorphone 1 Mg Inj) 1 mg IV NOW ONE Stop: 12/04/23 23:44 Last Admin: 12/05/23 00:18 Dose: 1 mg Documented By: VASYL Sodium Chloride (Normal Saline 0.9%) 1,000 mls @ 1,000 mls/hr IV BOLUS ONE Stop: 12/04/23 23:16 Last Infusion: 12/04/23 23:41 Dose: Infused Documented By: Admin: 12/04/23 22:24 Dose: 1,000 mls/hr Documented By: LATISHA Ketorolac Tromethamine (Ketorolac 30 Mg/Ml Vial) 15 mg IV NOW ONE Stop: 12/04/23 22:18 Last Admin: 12/04/23 22:22 Dose: 15 mg Documented By: LATISHA Vital Signs Vital signs: Vital Signs - 8 hr 12/04/23 22:02 12/04/23 23:15 12/04/23 23:30 Temperature 97.9 F Pulse Rate 113 H 110 H 103 H Respiratory Rate 20 Blood Pressure 189/90 H Pulse Oximetry 100 96 97 Oxygen Delivery Method Room Air Room Air 12/04/23 23:40 12/04/23 23:40 Temperature Pulse Rate 118 H Respiratory Rate Blood Pressure 149/91 H Pulse Oximetry 99 Oxygen Delivery Method Room Air MDM - Male Genitourinary Differential Diagnosis Differential diagnosis: Likely urinary tract infection and other (renal colic, acute kidney injury) Lab Data 12/04/23 22:15 12/04/23 22:15 Labs: Lab Results 12/04/23 12/04/23 Range/Units 21:55 22:15 WBC 13.4 H (4.5-11.0) X10^3/uL RBC 5.18 (4.5-5.9) X10^6/uL Hgb 15.1 (13.5-17.5) g/dL Hct 44.2 (41-53) % MCV 85.3 (80-100) fL MCH 29.0 (26-34) PG MCHC 34.1 (30-36) % RDW 13.5 (11.6-14.8) % Plt Count 340 (150-400) X10^3/uL Neut % (Auto) 73.0 (50-75) % Lymph % (Auto) 20.3 L (25-40) % [place] % (Auto) 5.8 (3-14) % Eos % (Auto) 0.4 L (2-4) % Baso % (Auto) 0.5 (0-2) % Neut # (Auto) 9800 H (3528-6941) /uL Lymph # (Auto) 2700 (3992-2382) /uL [place] # (Auto) 800 (0-900) /uL Eos # (Auto) 0 (0-450) /uL Baso # (Auto) 100 (0-100) /uL Sodium 139 (137-145) mmol/L Potassium 4.1 (3.4-5.1) mmol/L Chloride 109 H (98-107) mmol/L Carbon Dioxide 22 (22-32) mmol/L BUN 12 (9-20) mg/dL Creatinine 0.91 (0.66-1.25) mg/dL Estimated GFR > 60 (>60) mL/min BUN/Creatinine Ratio 13.2 (6-22) Glucose 110 H (70-100) mg/dL Calcium 9.4 (8.4-10.2) mg/dL Total Bilirubin 1.1 (0.2-1.3) mg/dL AST 23 (17-59) IU/L ALT 17 (<50) IU/L Alkaline Phosphatase 115 (38-126) U/L Total Protein 7.9 (6.3-8.2) g/dL Albumin 4.5 (3.5-5.0) g/dL Globulin 3.4 (1.7-4.1) g/dL Albumin/Globulin Ratio 1.3 (1.0-2.8) Urine RBC 10-30/hpf H (0-5/HPF) Urine WBC 0-1/hpf (0-5/HPF) Ur Squamous Epith Cells None seen (0-5/HPF) Urine Bacteria None seen (None) Urine Mucus 1+ H (Negative) Ur Culture Indicated? Cult not indicated Vol Urine Centrifuged 10ml (spun) Urine Dip Bedside Urine Glucose Negative Bedside Urine Bilirubin - Negative Bedside Urine Ketone - Negative Urine Specific [place] 1.03 Bedside Urine Occult Blood +++ Bedside Urine pH 6 Bedside Urine Protein +/- 15 Bedside Urine Urobilinogen - Negative Bedside Urine Nitrite - Negative Bedside Urine Leukocytes - Negative Esterase Imaging Data CT scan - abdomen/pelvis: Radiologist's Impression: PROCEDURE: CT ABDOMEN PELVIS WO CON INDICATIONS: L FLANK PAIN, HX STONES TECHNIQUE: Axial sections were acquired from the lung bases to the pubic symphysis. Coronal and sagittal reformats were performed. For radiation dose reduction, the following was used: automated exposure control, adjustment of mA and/or kV according to patient size. COMPARISON: [facility], CT, CT KIDNEY URETER BLADDER (KUB), 11/25/2021, 4:02. FINDINGS: Image quality: Diagnostic. Lower Chest: No significant findings. URINARY: Right Kidney: No stones or hydronephrosis. Right Ureter: No hydroureter. Left Kidney: Mild left hydronephrosis. Additional small nonobstructing kidney stone. Left Ureter: Obstructing calculus at the distal left ureter measuring 0.4 cm, (). Mild left hydroureter. Bladder: Normal wall thickness. No stones. ABDOMEN: Liver: No contour-deforming solid mass. Hypodensity at the falciform ligament likely due to focal fatty infiltration. Gallbladder: No radiopaque gallstones or wall thickening. Biliary ducts: No biliary dilation. Pancreas: No ductal dilation. Spleen: Size is within normal limits. Adrenal Glands: No adrenal nodules. Stomach and Bowel: Normal colonic caliber, without significant wall thickening. Peritoneum: No abnormal intraperitoneal fluid. No free air. Ventral Wall: No hernia. Abdominal Nodes: No enlarged retroperitoneal or mesenteric lymph nodes. Vessels: Aorta and inferior vena cava are normal in size. PELVIS: Pelvic Organs: Unremarkable. Pelvic Nodes: Unremarkable. Miscellaneous: No inguinal hernias are seen. Bones: No suspicious osseous lesion. IMPRESSION: 1. Obstructing calculus in the distal left ureter measuring 0.4 cm. Mild hydronephrosis. 2. Additional small nonobstructing left kidney stone. Dictated by: Dany Park M.D. on 12/04/2023 at 23:24 Approved by: Dany Park M.D. on 12/04/2023 at 23:29 MDM Narrative Medical decision making narrative: Uncomfortable but nontoxic patient presenting for left-sided flank pain consistent with previous kidney stones. Laboratory work, pain medications ordered. Patient was here in June for left-sided stone pain as well, however says this is a repeat visit for same pain a CT will be ordered. Toradol minimally relate pain. Patient states that Dilaudid has worked for him in the past. Laboratory work shows normal kidney function, no leukocytosis, urinalysis negative for signs of infection. CT shows 4 mm stone on the left-hand side with mild hydronephrosis. Pain medications, Flomax, nausea medication sent to pharmacy of choice. Patient requested pain medication for tonight, which was provided. Patient again counseled on the importance of urology follow up and referral number provided Discharge Plan Departure Patient Disposition: Home Clinical Impression: Renal colic Instructions: Kidney Stones -- Adult Activity Restrictions/Additional Instructions: You have a 4 mm kidney stone in your left-hand side. Your kidney function is normal and you do not have an infection in your urine. Pain, nausea medications have been sent to your pharmacy as well as Flomax, which will help to pass the kidney stone. Follow up with Urology, a referral number has been provided. Prescriptions: New tamsulosin [Flomax] 0.4 mg capsule 0.4 mg PO DAILY Qty: 30 0RF ondansetron 4 mg tablet,disintegrating 4 mg PO Q8H PRN (Reason: nausea and vomiting) Qty: 30 0RF oxycodone-acetaminophen 5-325 mg tablet 1 tab PO TID PRN (Reason: pain) Qty: 14 0RF No Action ondansetron 4 mg tablet,disintegrating 4 mg PO Q6H PRN (Reason: nausea and vomiting) Qty: 20 0RF hydrocodone-acetaminophen 5-325 mg tablet 1 tab PO Q6H PRN (Reason: pain) Qty: 20 0RF Referrals: Giovany Pop MD [Primary Care Provider] - Vinod Bell MD [Physician] - Stand Alone Forms: Patient Portal/API, Work Release Note
[2023-12-04 22:19] LABS: Bacteria Urine None Seen; Culture Indicated Urine Cult Not Indicated; Mucus Urine 1+ (Negative); RBC Urine 10-30/HPF (0-5/HPF); Squamous Epithelial Cell Urine None Seen (0-5/HPF); Urine Volume 10mL (spun); WBC Urine 0-1/HPF (0-5/HPF)
[2023-12-04 22:20] LABS: Add Manual Diff / Slide Review NO; Basophils Absolute Auto 100 /uL (0-100); Basophils Percent Auto 0.5 % (0-2); Eosinophils Absolute Auto 0 /uL (0-450); Eosinophils Percent Auto 0.4 % (2-4); Hematocrit 44.2 % (41-53); Hemoglobin 15.1 g/dL (13.5-17.5); Lymphocytes Absolute Auto 2700 /uL (1100-4500); Lymphocytes Percent Auto 20.3 % (25-40); Mean Corpuscular HGB Conc 34.1 % (30-36); Mean Corpuscular Volume 85.3 fL (80-100); Monocytes Absolute Auto 800 /uL (0-900); Monocytes Percent Auto 5.8 % (3-14); Neutrophils Absolute Auto 9800 /uL (1500-7000); Platelet Count 340 X10^3/uL (150-400); Red Blood Cell Count 5.18 X10^6/uL (4.5-5.9); Red Cell Distribution Width 13.5 % (11.6-14.8); White Blood Cell Count 13.4 X10^3/uL (4.5-11.0)
[2023-12-04] MEDS: KETOROLAC 30 MG/ML VIAL 15 MG IV (22:22)
[2023-12-04] MEDS: SODIUM CHLORIDE 0.9% 1,000 ML 1000 ML IV (22:24)
[2023-12-04 22:32] LABS: Alanine Aminotransferase 17 IU/L (<50); Albumin 4.5 g/dL (3.5-5.0); Albumin Globulin Ratio 1.3 (1.0-2.8); Alkaline Phosphatase 115 U/L (38-126); Aspartate Aminotransferase 23 IU/L (17-59); BUN Creatinine Ratio 13.2 (6-22); Bilirubin Total 1.1 mg/dL (0.2-1.3); Blood Urea Nitrogen 12 mg/dL (9-20); Calcium 9.4 mg/dL (8.4-10.2); Carbon Dioxide 22 mmol/L (22-32); Chloride 109 mmol/L (98-107); Estimated Glomerular Filt Rate > 60 mL/min (>60); Globulin 3.4 g/dL (1.7-4.1); Glucose 110 mg/dL (70-100); HEMOLYSIS < 15 (0-50); Potassium 4.1 mmol/L (3.4-5.1); Sodium 139 mmol/L (137-145); Total Protein 7.9 g/dL (6.3-8.2)
[2023-12-04] MEDS: HYDROMORPHONE 0.5 MG INJ IV (22:59)
[2023-12-04 23:15] VITALS: PULSE 110; O2SAT 96
[2023-12-04 23:30] VITALS: PULSE 103; O2SAT 97
[2023-12-04 23:40] VITALS: BP 149/91; PULSE 118; O2SAT 99
--- NOTE | 2023-12-04 23:45 | PC.NURSE ---
Asked patient if he has a ride home. Patient states he is calling his ride to come get him now.
[2023-12-05] MEDS: HYDROCODONE/ACET 5/325 PREPACK 1 BOTTLE MISC (00:18)
[2023-12-05] MEDS: HYDROMORPHONE 1 MG INJ IV (00:18)
== END 2023-12-05 00:26 | disposition home or self-care (01) ==
PROVIDERS: Emergency Provider Emergency Medicine; PCP Urology
DX: N23 Unspecified renal colic (principal); Z87.442 Personal history of urinary calculi
CPT/HCPCS: 36415; 74176; 80053; 81003; 81015; 85025; 96361; 96374; 96375; 96376; 99284; J1170; J1885